=== PATIENT | female | born 2000 ===

== ENCOUNTER 2024-01-01 15:08 | Outpatient (AMB) | payer OTHER, SELFPAY ==
--- NOTE | 2024-01-01 15:12 | AM.OFFWIN_ITS ---
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 Patient is not certain what she is taking at home for her symptoms but states that her boyfriend was diagnosed with influenza earlier today. Patient denies having a sore throat, otalgia, shortness of breath or chest pain. Review of Systems Const Reports chills, Reports fatigue, Reports fever(s) and Reports malaise Eyes Reports no additional complaints ENT Denies otalgia and Reports nasal discharge Card Reports rapid heart rate, Denies dyspnea and Denies dyspnea on exertion Resp Reports cough, Denies pain with cough, Denies dyspnea and Denies dyspnea on exertion GI Reports no additional complaints Musc Reports as per HPI Endo Reports no additional complaints and Reports fatigue Physical Exam Vital Signs: Last Vital Signs Pulse 142 H 01/01/24 15:14 Pulse Ox 100 01/01/24 15:14 Oxygen Delivery Method Room Air 01/01/24 15:14 Patient is febrile and tachycardic; recheck HR 132bpm. Const General: cooperative, healthy appearing, no acute distress, alert and awake; No diaphoretic or lethargic Nutritional Appearance: thin Orientation/consciousness: patient oriented x3 and No lethargic Limitations: no limitations HEENT Head: Yes normal to inspection and Yes normocephalic Ears: hearing grossly normal bilaterally, external ears normal, TM's normal bilaterally and EAC's normal General nose exam: Normal external nose present Face and sinus: Yes normal facial exam and Yes sinuses nontender Mouth: Normal oral and palatal mucosa present and moist mucous membranes Throat: Yes posterior oropharynx normal and No postnasal drainage Eyes General: appearance normal, both eyes and all related structures Neck Lymphatic: no lymphadenopathy noted Resp Effort & Inspection: normal respiratory effort, able to speak in complete sentences, no audible wheezes, no cough, no nasal flaring and no respiratory distress Auscultation: clear to auscultation bilaterally Cardio Rate: tachycardic Rhythm: regular rhythm Neuro General: patient oriented x3 Psych Appearance: grossly normal Mental Status: mental status grossly normal Insight: Good insight present (Psych) Judgement: Good judgement present (Psych) Assessment & Plan Assessment & Plan (1) Cough with fever: Comment: Patient is febrile, tachycardic and has been exposed to influenza; patient will be prescribed Tamiflu while SARS panel is pending. Strict return precautions and reasons to present to the ED are reviewed including increased dyspnea, persisting tachycardia, chest pain or syncope. It is noted that the patient is taking oral contraceptives. Patient is given 400mg ibuprofen here in the Walk- In for management of her fever. Code(s): R05.9 - Cough, unspecified; R50.9 - Fever, unspecified Plan: Tamiflu BID x 5 days, Ibuprofen or Tylenol as needed for fevers, return for any worsening symptoms. Orders: Orders SARS-CoV2/FLU/RSV Today R05.9 - Cough, unspecified, R50.9 - Fever, unspecified Medications: New oseltamivir (Tamiflu) 75 mg PO BID 5 days 10 caps 0RF Coding Level of Care Code New Pt Level 4 (02570) Diagnoses Cough with fever R05.9; R50.9 Time Spent (min) 25
[2024-01-01 15:14] VITALS: BP 102/70; PULSE 142; TEMP 38; O2SAT 100
== END 2024-01-01 16:39 | disposition home or self-care (01) ==
PROVIDERS: Visit Provider Physician Assistant
DX: R05.9 Cough, unspecified (principal); R50.9 Fever, unspecified
CPT/HCPCS: 99204

== ENCOUNTER 2024-01-01 17:02 | Outpatient (REF) | payer OTHER, SELFPAY ==
[2024-01-01 17:49] LABS: Influenza A PCR POSITIVE (Negative); Influenza B PCR NEGATIVE (Negative); Resp Syncy Virus RNA Qual PCR NEGATIVE (Negative); SARS COV2 PCR INHOUSE NEGATIVE (Negative)
== END 2024-01-01 17:03 | disposition home or self-care (01) ==
LOC: HO.HMGCLNP 17:02
PROVIDERS: Visit Provider Physician Assistant
DX: Z11.52 Encounter for screening for COVID-19 (principal); Z20.822 Contact with and (suspected) exposure to COVID-19; R05.9 Cough, unspecified; R50.9 Fever, unspecified
CPT/HCPCS: 0241U